=== PATIENT | male | born 1970 | race Caucasian/White ===

== ENCOUNTER 2023-06-03 12:59 | Outpatient (CLI) | payer OTHER, SELFPAY ==
--- OUTSIDE RECORDS SUMMARY | 2023-06-05 15:46 | XMS_ITS | Referral Summary ---
Author Name Unknown Organization [facility] Address [address] [facility] [place] [address] Care Team Providers Care Box Printing Machine Operator Name Role Phone Karl Barros Unavailable [phone] Oliva Cantrell PA-C Unavailable [phone] Karl Barros Primary Care Provider [phone] Allergies No known active allergies Medications Medication [...] on file Medical Devices Implanted Type Area Mining Plant Operator Device Identifier Shelf Expiration Date Model / Serial / Lot Stent Ureteral Contour Soft Percuflex [id number] Implanted:Qty: 1 on 01/11/2020 by Yogesh Anderson MD at [facility] Stent Left: Urethra [employer] 10/04/2022 [id number] / / [id number] Care Teams Box Printing Machine Operator Relationship Specialty Start Date End Date Karl Barros [place] [address] [place] [address] PCP - General Family Practice 12/29/19 Karl Barros [address] [address] Referring Physician Family Practice 12/29/19 Oliva Cantrell PA-C [address] [address] Physician Sprinkler Inspector Physician Sprinkler Inspector - Medical 12/29/19
--- OUTSIDE RECORDS SUMMARY | 2023-06-05 15:46 | XMS_ITS | Data Portability ---
Author Name Unknown Address [address] [place] [address] Phone [phone] Organization [facility], [facility] Address [address] [place] [address] Care Team Providers Care Gift Basket Packer Name Role Phone ELVIN DOBBINS Primary Care [...] 020 [facility], [address], [place], [address], 0 13:03:43 Referral None recorded. Procedures None recorded. Surgeries None recorded. Imaging US, renal 2019 020 [email or web address] [facility] [place], [address], [address], [place], [address], 0 13:04:49 Medication Orders hydrochlor othiazide 50 mg tablet 2019 020 INTERFACE [id number], [address], [place], [address], 0 10:52:03 Patient TargetsNo targets recorded. Patient Instructions Encounter Date Encounter Id Patient Instructions Last Modified By Organization Details Last Modified Time 01/28/2020 [id number] STONE PREVENTION. [email or web address] Not availab le 01/28/2020 10:23:23 12/16/2019 [id number] Ureteroscopy wit h Stone Manipulation - PATIENT [...] observ ation record ed. EVAN [facility] [place] [address] [facility] [address], [place], [address], 06/27/2020 14:41:16 Result Notes None recorded. Problems Name Status Onset Date Resolution Date Notes Provider Name and Address Organization Details Recorded Time Kidney stone Active 0 Yogesh Alford MD [address] [place] [address],[address], [place], [address], [facility] 02/16/2020 09:13:01 Problem Notes None recorded. Procedures Surgical History Date Name Laterality Status Provider Name and Address Organization Details Recorded Time 01/28/20 20 Cystoscopy with foreign body/stent removal completed Dylon Luu MD [address] [place] [address],[address], [place], [address], [facility] 01/28/2020 10:22:20 extracorporeal shockwave lithotripsy completed Dylon Luu MD [address] [place] [address],[address], [place], [address], [facility] 01/28/2020 09:39:39 Imaging Results Imaging Date Name Status LastModified by Organiz ation Details LastModified Time 06/26/2020 US, retroperitone um, complete completed EVAN [facility] [place] [address] [facility] [address], [place], [address], 06/27/2020 14:41:16 Procedure Notes None recorded. Medical [...] Updated DateTime 01/28/2020 180.34 cm 32.5 kg/m2 757076.02 g Dylon Luu MD [address] [facility],[address], [place], [address], [facility] 01/28/2020 09:38:17 Date Recorded Body height Body mass index (BMI) Body weight Provider Name and Address Organization Details Last Updated DateTime 03/27/2020 180.34 cm 32.8 kg/m2 209797.21 g Deangelo dunn [facility] 03/27/2020 10:24:58 Date Recorded Body height Body mass index (BMI) Body weight Provider Name and Address Organization Details Last Updated DateTime 12/16/2019 180.34 cm 32.5 kg/m2 290164.02 g Deangelo dunn [facility] 12/16/2019 16:11:07 Social History Question Answer Notes LastModified by Organizat ion Details LastModified Time Tobacco Smoking Status Never Smoker Deangelo dunn [facility] 12/16/2019 16:14:01 What Is Your Level Of [...] of diabetes mellitus Medical History Condition Response Other N High Blood Pressure N Kidney Stones Y Lung Disease N Depression Y GERD/Acid Reflux N Sexually Transmitted Infection N Diabetes N Bleeding Disorder N Cancer N High Cholesterol N Heart Disease N Past Encounters Encounter ID Performer Location Encounter Start Date Encounter Closed Date Diagnosis/Indication [id number] Yogesh Alford MD [facility] [address] [place] [address] 12/16/2019 16:09:12 12/17/2019 08:44:55 Kidney stone [id number] MD [facility] [address] [place] [address] 01/28/2020 09:34:55 01/28/2020 11:44:45 Ureteric stone [id number] MD MICA [facility] [address] [place] [place] [place] [address] 03/27/2020 10:24:03 03/27/2020 13:16:49 Kidney stone Health Concerns Section Related Observation LastModified by Organization Detai ls LastModified Time None Recorded Concern Status LastModified by Organization Details LastModified Time None Recorded Advance Directives Directive None Recorded Payers Encounter Date Sequence Insurance Name Policy Number Policy Leiva Covered Member ID Leiva Member ID Guarantor Name 03/27/2020 1 [facility] [id number] Vic Ruanovorson [id number] Vic Vann Raj 01/28/2020 1 [facility] [id number] Vic Williamson Raj [id number] Vic Vann Raj 12/16/2019 1 [facility] [id number] Vic Ruanovorson [id number] Vic Vann Raj Notes Date Note Type [...] alleviating factors. This visit was conducted using Book[employer]ee video conferencing technology due to the COVID-19 [...] and coordinate their care. Yogesh Alford MD [address] [place] [address],[facility] [address], [place], [address], [facility] 12/16/2019 17:37:49 01/28/2020 text/html HPI Notes: Mr. [...] STENT REMOVAL..S/P URS,HLL, STENT-DR PRASHANTH Luu MD [address] [place] [address],[address], [place], [address], [facility] 01/28/2020 10:24:06 03/27/2020 text/html HPI Notes: [...] coordinate their care. Yogesh Alford MD [address] [place] [address], [address], [facility] 03/27/2020 10:53:13
--- OUTSIDE RECORDS SUMMARY | 2023-06-05 15:46 | XMS_ITS | Clinical Summary ---
Author Name Unknown Organization [facility] Address [address] [place] [address] Phone [email or web address] Care Team Providers Care Caustic Preparer Name Role Phone Pcp, No Primary Care [...] age to complete this topic Care Teams Caustic Preparer Relationship Specialty Start Date End Date Pcp, [place] [address] PCP - General Family Medicine 06/16/19
--- OUTSIDE RECORDS SUMMARY | 2023-06-05 15:46 | XMS_ITS | Clinical Summary ---
Author Name Unknown Organization [facility] Address [address] [facility] [place] [address] Care Team Providers Care Senior Accounting Manager Name Role Phone Karl Barros Unavailable [phone] Oliva Cantrell PA-C Unavailable [phone] Karl Barros Primary Care Provider [phone] Allergies No known active allergies Medications Medication [...] this topic Medical Devices Implanted Type Area Benzene Worker Device Identifier Shelf Expiration Date Model / Serial / Lot Stent Ureteral Contour Soft Percuflex [id number] Implanted:Qty: 1 on 01/11/2020 by Yogesh Anderson MD at [facility] Stent Left: Urethra [employer] 10/04/2022 [id number] / / [id number] Care Teams Senior Accounting Manager Relationship Specialty Start Date End Date Karl Barros [address] [address] PCP - General Family Practice 12/29/19 Karl Barros [address] [address] Referring Physician Family Practice 12/29/19 Oliva Cantrell PA-C [address] [place] [address] [place] [address] Physician Adult Psychiatrist Physician Adult Psychiatrist - Medical 12/29/19
--- OUTSIDE RECORDS SUMMARY | 2023-06-05 15:47 | XMS_ITS | Encounter Summary ---
Author Name Unknown Organization [facility] Address [address] [place] [address] Phone [email or web address] Care Team Providers Care Planning Assistant Name Role Phone Pcp, No Primary Care Provider Unavailabl e Reason for Visit * Reason Comments Annual Physical Exam Encounter Details Date Type Department Care Team (Late st Contact Info) Description 01/10/2023 8:30 AM CDT Office Visit [facility] [address] [place] [address] Nissa Morton NP [address] [place] [address] Encounter for annual physical exam (Primary Dx); [...] coaches. This is a free service for [facility] employees. Please call our front end application developer to [phone]. If you reconsider, recommended vaccines: shingles, flu, tetanus booster, covid booster coming out this fall. * Attachments The following attachments cannot be sent through Care Everywhere. * Well Visit: 50 to 65 Year Men (Italian) * Anxiety: Paying Attention to How You're Doing: Video (Italian) * Exercise: General Info (Italian) * Kidney Stone Prevention Diet: General Info (Italian) documented in this encounter Progress Notes * Nissa Morton, ARNULFO - 01/10/2023 8:30 AM CDT Subjective: Vic Anthony is a 52 y.o. male last seen by me 07/2020 here for annual exam. No international travel planned. 2020-lithotripsy and stent-mult stones. Has been on HCTZ 50 mg once daily since then. No recent symptoms. 2021-screening colonoscopy-had it done in [place]. Had a few polyps. Repeat due in [...] ear normal. Nose: Nose normal. Mouth/Throat: Lips: [place]. No lesions. Mouth: Mucous membranes are moist. [...] 75 mg once daily. Refills sent to [facility]. Advised to schedule PE w/ fasting labs. Orders: - Vitamin D 25-Hydroxy Total (62611) - Vitamin B12 Cyanocobalamin (97245) - CBC Complete Blood Count with Differential and Platelet (10129) - Comprehensive metabolic panel (37338) - sertraline (ZOLOFT) 50 MG tablet; Take [...] Screening for lipid disorders - Lipid panel (24452) Screening for human immunodeficiency virus without presence of risk factors - HIV 1/2 Antigen and Antibodies, 4th Generation, with Reflexes (18721) Encounter for HCV screening test for low risk patient - Hepatitis panel, general - [facility] (60486,54703,72851,49909,33225) Screening PSA (prostate specific antigen) - PSA Prostate Specific Antigen Total (46086) Screening for diabetes mellitus - Hgb A1C Hemoglobin Glycosylated (92072) BMI 35.0-35.9,adult Comments: 60 min mod physical activity daily, recommend Health Coaching/condition mgmt Repeat colonoscopy 2026 Declines Td, flu, shingles today. Refills sent. Nissa Morton NP documented in this encounter Plan of Treatment Not on file documented as of this encounter Procedures Procedure Name Priority Date/Time Associated Diagnosis Comments HEPATITIS PANEL, GENERAL - [facility] Routine 01/10/2023 8:43 AM CDT Encounter for [...] encounter Results * (ABNORMAL) Comprehensive metabolic panel (97924) (01/10/2023 8:43 AM CDT) Pathologist [facility] Glucose 86 65 - 99 mg/dL [facility] Comment: ? Fasting reference interval [...] 10 - 35 U/L [facility] ALT (SGPT) 16 9 - 46 U/L [facility] Blood (Blood, Venous) 01/10/2023 8:43 AM CDT 01/11/2023 5:37 AM CDT Nissa [facility] FAT PURIFICATION WORKER LAB BLOOD ORDERABLES [facility] [address] [place] [address] * CBC Complete Blood Count with Differential and Platelet (31463) (01/10/2023 8:43 AM CDT) Auto WBC 6.3 3.8 - 10.8 Thousand/u L [facility] RBC 4.77 4.20 - 5.80 Million/uL [facility] Hemoglobin 14.9 13.2 - [...] Platelets 258 140 - 400 Thousand/u L [facility] MPV 9.2 7.5 - [...] AM CDT 01/11/2023 5:37 AM CDT Nissa [facility] FAT PURIFICATION WORKER LAB BLOOD ORDERABLES [facility] [address] [place] [address] * Hepatitis panel, general - [facility] (66136,04573,67007,10011,27839) (01/10/2023 8:43 AM CDT) Hepatitis A Antibody, Total NON-REACTI VE NON-REACT TARAN [facility] Comment: For additional information, please refer to http://[facility]/faq/HJU277 (This link is being provided for informational/ educational purposes only.) HEPATITIS B SURFACE ANTIBODY QL NON-REACTI VE NON-REACT TARAN [facility] HEPATITIS B SURFACE ANTIGEN NON-REACTI VE NON-REACT TARAN [facility] Comment: For additional information, please refer to http://[facility]/faq/AOU305 (This link is being provided for informational/ educational purposes only.) Hepatitis B Core Ab Total NON-REACTI VE NON-REACT TARAN [facility] Comment: For additional information, please refer to http://[facility]/faq/BIQ783 (This link is being provided for informational/ educational purposes only.) HEPATITIS C ANTIBODY NON-REACTI VE NON-REACT TARAN [facility] Comment: HCV antibody was non-reactive. There is no laboratory evidence of HCV infection. In most cases, no further action is required. However, if recent HCV exposure is suspected, a test for HCV RNA (test code 01687) is suggested. For additional information please refer to http://[facility]/faq/QWB87w2 (This link is being provided for informational/ educational purposes only.) Blood (Blood, Venous) 01/10/2023 8:43 AM CDT 01/11/2023 5:37 AM CDT [facility] LAB BLOOD ORDERABLES Performing Organization Address [facility]/ZIP Co de Phone Number [facility] [address] [place] [address] * Hgb A1C Hemoglobin Glycosylated (25855) (01/10/2023 8:43 AM CDT) Hemoglobin A1C 5.0 <5.7 % of total Hgb [facility] Comment: For the purpose [...] diagnosis of diabetes in children. According to [place] Diabetes Association (ADA) guidelines, hemoglobin A1c <7.0% represents optimal control in non- diabetic patients. Different metrics may apply to specific patient populations. Standards of Medical Care in Diabetes(ADA). Blood (Blood, Venous) 01/10/2023 8:43 AM CDT 01/11/2023 5:37 AM CDT [facility] LAB BLOOD ORDERABLES Performing Organization Address [facility]/ZIP Co de Phone Number [facility] [address] [place] [address] * HIV 1/2 Antigen and Antibodies, 4th Generation, with Reflexes (96354) (01/10/2023 8:43 AM CDT) HIV Combo AB/AG NON-REACT TARAN NON-REACT TARAN [facility] Comment: HIV-1 antigen and HIV-1/HIV-2 [...] ?? For additional information please refer to http://education.j-Grab/faq/DMP029 (This link is being provided for informational/ educational purposes only.) The performance of this assay has not been clinically validated in patients less than 2 years old. Blood (Blood, Venous) 01/10/2023 8:43 AM CDT 01/11/2023 5:37 AM CDT [facility] LAB BLOOD ORDERABLES Performing Organization Address [facility] de Phone Number [facility] [address] [place] [address] * PSA Prostate Specific Antigen Total (12633) (01/10/2023 8:43 AM CDT) PSA 0.49 < OR = 4.00 ng/mL [facility] Comment: The total PSA value from [...] 8:43 AM CDT 01/11/2023 5:37 AM CDT [facility] LAB BLOOD ORDERABLES Performing Organization Address [facility] Co de Phone Number [facility] [address] [place] [address] * Vitamin B12 Cyanocobalamin (20027) (01/10/2023 8:43 AM CDT) Pathologist [facility] Vitamin B-12 265 200 - 1,100 pg/mL [facility] Comment: Please Note: Although the reference [...] CDT 01/11/2023 5:37 AM CDT Nissa Morton FAT PURIFICATION WORKER LAB BLOOD ORDERABLES Performing Organization Address City/State/[facility] Co de Phone Number [facility] [address] [place] [address] * Vitamin D 25-Hydroxy Total (22527) (01/10/2023 8:43 AM CDT) [facility] Vit D, 25-Hydroxy 61 30 - 100 ng/mL [facility] Comment: Vitamin D Status ? 25-OH Vitamin D: Deficiency: ?<20 ng/mL Insufficiency: ? 20 - 29 ng/mL Optimal: ? > or = 30 ng/mL For 25-OH Vitamin D testing on patients on D2-supplementation and patients for whom quantitation of D2 and D3 fractions is required, the [facility]() 25-OH VIT D, (D2,D3), LC/MS/MS is recommended: order code 21102 (patients >2yrs). See Note 1 Note 1 For additional information, please refer to http://education.Rotten Tomatoes/faq/WIY311 (This link is being provided for informational/ educational purposes only.) Blood (Blood, Venous) 01/10/2023 8:43 AM CDT 01/11/2023 5:37 AM CDT Nissa Morton NP LAB BLOOD ORDERABLES [facility] [address] [place] [address] * (ABNORMAL) Lipid panel (42877) (01/10/2023 8:43 AM CDT) Cholesterol 222(H) <200 mg/dL [facility] Total HDL-C Direct 45 > OR = 40 mg/dL [facility] Triglycerides 209(H) <150 mg/dL [facility] Comment: If a non-fasting specimen was collected, consider repeat triglyceride testing on a fasting specimen if clinically indicated. [place] et al. J. of Clin. Lipidol. 2015;9:129-169. LDL Calculated 142(H) mg/dL (calc) [facility] Comment: Reference range: <100 Desirable range <100 mg/dL for primary prevention; ?? <70 mg/dL for patients with CHD or diabetic patients with > or = 2 CHD risk factors. LDL-C is now calculated using the Mik-Peter calculation, which is a validated novel method providing better accuracy than the Friedewald equation in the estimation of LDL-C. Mik SS et al. SITA. 2013;310(19): 7732-6477 (http://education.Exit41.[place]/faq/BVH532) Chol/HDL Ratio 4.9 <5.0 (calc) [facility] Non HDL Chol. (LDL+VLDL) 177(H) <130 mg/dL (calc) [facility] Comment: For patients with diabetes plus 1 major ASCVD risk factor, treating to a non-HDL-C goal of <100 mg/dL (LDL-C of <70 mg/dL) is considered a therapeutic option. Blood (Blood, Venous) 01/10/2023 8:43 AM CDT 01/11/2023 5:37 AM CDT Nissa Morton FAT PURIFICATION WORKER LAB BLOOD ORDERABLES [facility] [address] [place] [address] documented in this encounter Visit Diagnoses Diagnosis [...] 35.0-35.9,adult documented in this encounter Care Teams Planning Assistant Relationship Specialty Start Date End Date [place], [place] [address] PCP - General Family Medicine 06/16/19 documented as of this encounter
== END 2023-06-03 13:00 | disposition home or self-care (01) ==
LOC: NFLDREF 06-05 15:43
PROVIDERS: Visit Provider Family Medicine
DX: R31.0 Gross hematuria (principal)
CPT/HCPCS: 87086

== ENCOUNTER 2023-06-04 09:11 | Outpatient (CLI) | payer OTHER, SELFPAY ==
--- OUTSIDE RECORDS SUMMARY | 2023-06-04 09:23 | XMS_ITS | Clinical Summary ---
Author Name Unknown Organization [facility] Address [address] [place] [id number] Phone [email or web address] Care Team Providers Care Compensation Director Name Role Phone Pcp, No Primary Care Provider Unavailabl e Allergies No known active allergies Medications Medication Sig Dispensed Refills Start Date End Date Status sertraline (ZOLOFT) 50 MG tabletIndications:Mi xed anxiety and depressive disorder Take 1.5 tablets (75 mg total) by mouth 1 (one) time each day. TAKE ONE AND ONE-HALF TABLETS ONE TIME EACH DAY 135 tablet 3 01/10/2023 Active hydroCHLOROthiazide (HYDRODIURIL) 50 MG tabletIndications:Ne phrolithiasis Take 1 tablet (50 mg total) by mouth 1 (one) time each day. 90 tablet 1 01/10/2023 Active Active Problems Problem Noted Date Diagnosed Date Medication refill 06/16/2019 Anxiety and depression 07/21/2017 Overview: Immunizations Name Administration Dates Next Due Influenza Tri (CVX - 141) 02/12/2012,,02/20/2010, 009 Td (TdVax), adult, 2 Lf teta nus toxoid, PF, adsorbed (CVX-09) 09/28/2002 Family History Medical History Relation Name Comments Cancer Father Wiliam leukemia- w /in 1 yr of diagnosis Valvular heart disease Father Wiliam valve replacement Coronary artery disease Father's Brother Diabetes Maternal Grandfather Grandpa Cancer Mother Mother met ovarian- d 4 days after diagnosis Depression Mother Mother Relation Name Status Comments Father Wiliam Father's Brother Maternal Grandfather Grandpa Mother Mother Social History Tobacco Use Types Packs/Day Years Used Date Smoking Tobacco: Never Smokeless Tobacco: Never Tobacco Cessation:Counseling Given: Not Answered Alcohol Use Standard Drinks/Week Comments Not Currently 5 (1 standard drink = 0.6 oz pur e alcohol) Intimate Partner Violence Answer Date R ecorded Insults You Not on file 08/22/2020 Threatens You Not on file 08/22/2020 Screams at You Not on file 08/22/2020 Physically Hurt Not on file 08/22/2020 Intimate Partner Violence Score Not on file 08/22/2020 Alcohol Use Answer Date Recorded Alcohol Use Status Not Currently 01/10/2023 Depression Answer Date Recorded PHQ Total Score 4 01/10/2023 Stress Answer Date Recorded Stress in your Life 0 06/22/2020 Dealing with Stress Not on file 06/22/2020 Sex and Gender Information Value Date Recorded Sex Assigned at Not on file Gender Identity Not on file Sexual Orientation Not on file Last Filed Vital Signs Vital Sign Reading Time Taken Comments Blood Pressure 112/70 01/10/2023 8:32 AM CDT Pulse 72 01/10/2023 8:32 AM CDT Temperature 36.1 ??C (97 ??F) 01/10/2023 8:32 AM CDT Respiratory Rate 12 01/10/2023 8:32 AM CDT Oxygen Saturation 98% 01/10/2023 8:32 AM CDT Inhaled Oxygen Concentration - - Weight 115 kg (253 lb 4.8 oz) 01/10/2023 8:32 AM CDT Height 180.3 cm (5' 11) 01/10/2023 8:32 AM CDT Body Mass Index 35.33 01/10/2023 8:32 AM CDT Plan of Treatment Health Maintenance Due Date Last Done Comments Dental Cleaning/Exam 1970 Influenza Immunization (#1) 2023 10/0 07/2011, 02/07/2011, 02/20/2010, Additional history exists Annual Preventive Exam 01/11/2024 01/10/2023, 2022 Covid-19 Immunization (#1) 01/11/2024 P ostponed from 01/26/1971 (Member Refused) Hepatitis B Immunization (1 of 3 - 3-dose series) 01/11/2024 Postponed from 1970 (Member Refused) Tetanus (Tdap or Td) Immunization 01/11/2024 09/28/2002 Postponed from 09/28/2012 (Member Refused) Zoster Immunization (1 of 2) 01/11/2024 Postponed from 2020 (Member Refused) Colorectal Cancer Screening 01/09/2027 01/09/2022 HIV Screening Completed 01/10/2023 Hep B Infection Screening - Surface Antigen Completed 01/10/2023 Hepatitis C Screening Completed 01/10/2023 HIB Immunization Aged Out No longer e ligible based on patient's age to complete this topic HPV Immunization Aged Out No longer e ligible based on patient's age to complete this topic Hepatitis A Immunization Aged Out No longer eligible based on patient's age to complete this topic Pneumococcal: Ped (0 to 5 Yrs) and At-Risk Member (6 to 64 Yrs) Aged Out No longer eligible based on patient's age to complete this topic Polio Immunization Aged Out No longer eligible based on patient's age to complete this topic Care Teams Compensation Director Relationship Specialty Start Date End Date Pcp, [place] [address] PCP - General Family Medicine 06/16/19
--- OUTSIDE RECORDS SUMMARY | 2023-06-04 09:23 | XMS_ITS | Clinical Summary ---
Author Name Unknown Organization [facility] Address [address] [facility] [place] [address] Care Team Providers Care Carbon Coater Machine Operator Name Role Phone Karl Barros Unavailable [phone] Oliva Cantrell PA-C Unavailable [phone] Karl Barros Primary Care Provider [phone] Allergies No known active allergies Medications Medication Sig Dispensed Refills Start Date End Date Status ondansetron (ZOFRAN) 4 MG tablet Take 4 mg by mouth every 6 hours as needed for nausea 0 Active oxyCODONE-acetaminop hen (PERCOCET) 5-325 MG tablet Take 1-2 tablets by mouth every 6 hours as needed for severe pain 0 Active sildenafil (REVATIO) 20 MG tablet Take 20 mg by mouth daily 0 Active tamsulosin (FLOMAX) 0.4 MG capsule Take 0.4 mg by mouth daily 0 Active sertraline (ZOLOFT) 50 MG tablet Take 50 mg by mouth daily 0 Active HYDROcodone-acetamin ophen (NORCO) 5-325 MG tabletIndications:Ki dney stone Take 1-2 tablets by mouth every 4 hours as needed for moderate to severe pain 15 tablet 0 01/11/2020 Active Social History Tobacco Use Types Packs/Day Years Used Date Smoking Tobacco: Never Smokeless Tobacco: Never Alcohol Use Standard Drinks/Week Comments Yes 0 (1 standard drink = 0.6 oz pur e alcohol) occassional Adolescent Education Answer Date Record ed Getting School Help Needed Not on file 01/31 Sex and Gender Information Value Date Recorded Sex Assigned at Not on file Gender Identity Not on file Sexual Orientation Not on file Last Filed Vital Signs Vital Sign Reading Time Taken Comments Blood Pressure 126/83 01/11/2020 5:15 PM CDT Pulse 72 01/11/2020 3:30 PM CDT Temperature 36.4 ??C (97.6 ??F) 01/11/2020 2:27 PM CD T Respiratory Rate 18 01/11/2020 5:15 PM CDT Oxygen Saturation 100% 01/11/2020 4:40 PM CDT Inhaled Oxygen Concentration - - Weight 108 kg (238 lb) 01/11/2020 9:41 AM CDT Height 180.3 cm (5' 11) 01/11/2020 9:41 AM CDT Body Mass Index 33.19 01/11/2020 9:41 AM CDT Plan of Treatment Health Maintenance Due Date Last Done Comments ADVANCE CARE PLANNING 1970 ANNUAL REVIEW OF HM ORDERS 1970 CT COLONOGRAPHY 1970 FIT 1970 FLEX SIG 1970 HEPATITIS B IMMUNIZATION (1 of 3 - 3-dose series) 1970 YEARLY PREVENTIVE VISIT 1970 sDNA (Cologuard) 1970 COVID-19 Vaccine (#1) 01/26/1971 COLONOSCOPY 1980 COLORECTAL CANCER SCREENING 1980 HIV SCREENING 1985 HEPATITIS C SCREENING 1988 DTAP/TDAP/TD IMMUNIZATION (1 - Tdap) 09/29/2002 09/28/2002 LIPID 2005 ZOSTER IMMUNIZATION (1 of 2) 2020 INFLUENZA VACCINE (#1) 2023 2, 02/07/2011, 02/20/2010, Additional history exists PHQ-2 (once per calendar year) 2023 HPV IMMUNIZATION Aged Out No longer e ligible based on patient's age to complete this topic IPV IMMUNIZATION Aged Out No longer e ligible based on patient's age to complete this topic MENINGITIS IMMUNIZATION Aged Out No l onger eligible based on patient's age to complete this topic Pneumococcal Vaccine: Pediatrics (0 to 5 Years) and At-Risk Patients (6 to 64 Years) Aged Out No longer eligible based on patient's age to complete this topic RSV MONOCLONAL ANTIBODY Aged Out No l onger eligible based on patient's age to complete this topic Medical Devices Implanted Type Area Network Security Analyst Device Identifier Shelf Expiration Date Model / Serial / Lot Stent Ureteral Contour Soft Percuflex [id number] Implanted:Qty: 1 on 01/11/2020 by Yogesh Anderson MD at [facility] Stent Left: Urethra [employer] 10/04/2022 [id number] / / [id number] Care Teams Carbon Coater Machine Operator Relationship Specialty Start Date End Date Karl Barros [address] [address] PCP - General Family Practice 12/29/19 Karl Barros [address] [address] Referring Physician Family Practice 12/29/19 Oliva Cantrell PA-C [id number] [place] [address] [place] [address] Physician Cheese Weigher Physician Cheese Weigher - Medical 12/29/19
--- OUTSIDE RECORDS SUMMARY | 2023-06-04 09:23 | XMS_ITS | Referral Summary ---
Author Name Unknown Organization [facility] Address [address] [facility] [place] [address] Care Team Providers Care Pilling Machine Operator Name Role Phone Karl Barros Unavailable [phone] Oliva Cantrell PA-C Unavailable [phone] Karl Barros Primary Care Provider [phone] Allergies No known active allergies Medications Medication [...] 01/11/2020 9:41 AM CDT Plan of Treatment Not on file Medical Devices Implanted Type Area Account Support Associate Device Identifier Shelf Expiration Date Model / Serial / Lot Stent Ureteral Contour Soft Percuflex [id number] Implanted:Qty: 1 on 01/11/2020 by Yogesh Anderson MD at [facility] Stent Left: Urethra [employer] 10/04/2022 [id number] / / [id number] Care Teams Pilling Machine Operator Relationship Specialty Start Date End Date Karl Barros [place] [address] [place] [address] PCP - General Family Practice 12/29/19 Karl Barros [address] [address] Referring Physician Family Practice 12/29/19 Oliva Cantrell PA-C [phone] [address] Physician Tetryl Screen Operator Physician Tetryl Screen Operator - Medical 12/29/19
--- OUTSIDE RECORDS SUMMARY | 2023-06-04 09:23 | XMS_ITS | Data Portability ---
Author Name Unknown Address [address] [place] [address] Phone [phone] Organization [facility], [facility] Address [address] [place] [address] Care Team Providers Care Campus Safety Officer Name Role Phone ELVIN DOBBINS Primary Care Provider Assessment Encounter Date Assessment Date Assessment LastModified by Organization Details LastModified Time 12/16/2019 12/16/2019 49-year-old male with nephrolithiasis Not available 12/16/2019 17:35:23 01/28/2020 01/28/2020 49 Y/O MALE, HX FOR LEFT FLANK PAIN, S/P URS,HLL, LEFT STENT WITH DR ALFORD. DOING WELL. STENT REMOVED. PREVENTIVE MEASURES REVIEWED. PLAN FOLLOWUP WITH DR ALFORD IN 6-12 MO. francisco CALVO Not available 01/28/2020 10:23:45 03/27/2020 03/27/2020 49-year-old male with nephrolithiasis. Of note a total of 15 minutes was spent reviewing records and in discussion with patient, >50 % of which was in coordination and counseling. Not available 03/27/2020 10:53:01 Plan of Treatment Reminders Order Date Submit Date Provider Last Modified By Organization Details Last Modified Time Details Appointments None recorded. Lab kidney stone, 24-hour urine panel 2019 020 [facility], [address], [place], [address], 0 13:03:43 Referral None recorded. Procedures None recorded. Surgeries None recorded. Imaging US, renal 2019 020 [email or web address] [facility] [place], [address], [address], [place], [address], 0 13:04:49 Medication Orders hydrochlor othiazide 50 mg tablet 2019 020 INTERFACE [id number], [address], [place], [address], 0 10:52:03 Patient TargetsNo targets recorded. Patient Instructions Encounter Date Encounter Id Patient Instructions Last Modified By Organization Details Last Modified Time 01/28/2020 [id number] STONE PREVENTION. [email or web address] Not availab le 01/28/2020 10:23:23 12/16/2019 [id number] Ureteroscopy wit h Stone Manipulation - PATIENT INFORMED CONSENT Ureteroscopy is a procedure in which a thin telescope is inserted into the ureter (tube that drains the kidney) to remove a stone or obstruction. The goal of this treatment is to remove or break urinary stones into particles small enough to be removed from the urinary tract. This may be accomplished with a laser and/or stone basketing. I understand that there are alternative methods to treat urinary stones, which include: No treatment of the urinary stone(s). Manipulation of a stone in the ureter back into the kidney with placement of a stent (a tube that drains the kidney ? which may be followed by another treatment Shock Wave Lithotripsy (ESWL), or treatment of stones with energy waves Percutaneous Lithotripsy (PNL), a puncture/scope technique through the side directly into the kidney (generally reserved for larger stones) Surgical removal of stone(s) through an incision. I realize that ureteroscopy with stone manipulation MAY or MAY NOT successfully fragment my stones. In many cases, a temporary ureteral stent will be necessary to allow for the passage of stones. I further recognize that some fragments may require alternative treatments to be used following ureteroscopy. I understand that radiographs (x-rays) and other diagnostic studies are necessary following treatment to assess the success of treatment and to diagnose urinary drainage problems, which might result from treatment. I understand that any tubes placed in my urinary tract before, during and after ureteroscopy treatment will need to be removed in a timely fashion. RISKS OF Ureteroscopy with Stone Manipulation The stone may be incompletely fragmented and require alternative treatment. There may be damage to the ureter required prolonged stenting or open repair There may be bleeding sufficient enough to require transfusion. Urinary infection associated with stones may become aggravated and become life threatening. Malfunction of the laser or equipment is a possibility and may require re-scheduling Damage to kidney can occur and may require the removal of the kidney. Damage to the ureter, or tube that drains the kidney may occur and may result in scarring or stricture Anesthesia risks including heart attack, stroke, and even . THESE ARE NOT PROBABLE RESULTS, BUT THEY ARE STATISTICAL POSSIBILITIES. PATIENT ACKNOWLEDGEMENT I have been given an opinion as to the appropriateness of ureteroscopy with stone manipulation for my condition by my personal physician. I have the right to seek a second opinion regarding my care. I understand that it is my responsibility to seek follow-up care from my urologist after treatment. I will be given instructions on necessary post-treatment care. If a ureteral stent has been placed it will need to be removed at a later date (second stage procedure) in the office. I have been allowed to ask questions about the treatment. I have read this form and/or it has been explained to me. I understand that by signing this form, I am consenting to the performance of ureteroscopy with stone manipulation for treatment of stones and any of the above-mentioned alternative procedures necessary for my best health. By signing this document, I agree that any problems, risks, or complications, which may arise either in whole or in part as a result of inaccurate or incomplete information shall be my responsibility. Not available 12/16/2019 17:37:29 Reason for Referral None Reported. Results Created Date Observation Date Name Description Value Unit Range Abnormal Flag LastModifiedBy Organization Detail LastModifiedTime 06/26/19 21 06/26/2020 US, retro perit oneum , compl ete No observ ation record ed. EVAN [facility] [place] [address] [facility] [address], [place], [address], 06/27/2020 14:41:16 Result Notes None recorded. Problems Name Status Onset Date Resolution Date Notes Provider Name and Address Organization Details Recorded Time Kidney stone Active 0 Yogesh Alford MD [address] [place] [address],[address], [place], [address], [facility] 02/16/2020 09:13:01 Problem Notes None recorded. Procedures Surgical History Date Name Laterality Status Provider Name and Address Organization Details Recorded Time 01/28/20 20 Cystoscopy with foreign body/stent removal completed Dylon Luu MD [address] [place] [address],[address], [place], [address], [facility] 01/28/2020 10:22:20 extracorporeal shockwave lithotripsy completed Dylon Luu MD [address] [place] [address],[address], [place], [address], [facility] 01/28/2020 09:39:39 Imaging Results Imaging Date Name Status LastModified by Organiz ation Details LastModified Time 06/26/2020 US, retroperitone um, complete completed EVAN [facility] [place] [address] [facility] [address], [place], [address], 06/27/2020 14:41:16 Procedure Notes None recorded. Medical Equipment None Reported. Allergies No known drug allergies Medications Name Sig Start Date Stop Date Status Note LastModified by Organization Details LastModified Time hydrochloroth iazide 50 mg tablet TAKE 1 TABLET BY MOUTH EVERY DAY active Not Available Not Available No t Available hydrocodone 5 mg-acetaminop hen 325 mg tablet 03/27 completed Not Available Not Available Not Available oxycodone-ulysses taminophen 5 mg-325 mg tablet 03/27 completed Not Available Not Available Not Available tamsulosin 0.4 mg capsule 03/27 completed Not Available Not Available Not Available ondansetron 4 mg disintegratin g tablet 03/27 completed Not Available Not Available Not Available sertraline 50 mg tablet active Not Available Not Available No t Available Zoloft 01/27 completed Not Available Not Available Not Available Vitals Date Recorded Body height Body mass index (BMI) Body weight Provider Name and Address Organization Details Last Updated DateTime 01/28/2020 180.34 cm 32.5 kg/m2 416300.02 g Dylon Luu MD [address],[address], [place], [address], [facility] 01/28/2020 09:38:17 Date Recorded Body height Body mass index (BMI) Body weight Provider Name and Address Organization Details Last Updated DateTime 03/27/2020 180.34 cm 32.8 kg/m2 932573.21 g Deangelo dunn [facility] 03/27/2020 10:24:58 Date Recorded Body height Body mass index (BMI) Body weight Provider Name and Address Organization Details Last Updated DateTime 12/16/2019 180.34 cm 32.5 kg/m2 719207.02 g Deangelo dunn [facility] 12/16/2019 16:11:07 Social History Question Answer Notes LastModified by Organizat ion Details LastModified Time Tobacco Smoking Status Never Smoker Deangelo dunn [facility] 12/16/2019 16:14:01 What Is Your Level Of Alcohol Consumption? Moderate Information not available 03/27/2020 What Is Your Level Of Caffeine Consumption? Moderate Information not available 03/27/2020 How Much Tobacco Do You Chew? None Information not available 03/27/2020 Do You Or Have You Ever Used E-cigarettes Or Vape? Never Used Electronic Cigarettes Information not available 03/27/2020 Recreational Drug Use No Information not available 03/27/2020 Marital Status Informatio n not available 03/27/2020 Sex: Male Functional Status None recorded. Mental Status None recorded. Family History Relationship Description Onset Age of this Age Resolved Age Notes Mother Family history of cancer Father Family history of cardiac disorder Maternal Grandfather Family history of diabetes mellitus Medical History Condition Response Diabetes N Sexually Transmitted Infection N Bleeding Disorder N Other N High Blood Pressure N Kidney Stones Y High Cholesterol N GERD/Acid Reflux N Heart Disease N Cancer N Depression Y Lung Disease N Past Encounters Encounter ID Performer Location Encounter Start Date Encounter Closed Date Diagnosis/Indication [id number] Yogesh Alford MD [facility] [address] [place] [address] 12/16/2019 16:09:12 12/17/2019 08:44:55 Kidney stone [id number] MD [facility] [address] [place] [address] 01/28/2020 09:34:55 01/28/2020 11:44:45 Ureteric stone [id number] MD [facility] [address] [place] [facility] [address] 03/27/2020 10:24:03 03/27/2020 13:16:49 Kidney stone Health Concerns Section Related Observation LastModified by Organization Detai ls LastModified Time None Recorded Concern Status LastModified by Organization Details LastModified Time None Recorded Advance Directives Directive None Recorded Payers Encounter Date Sequence Insurance Name Policy Number Policy Leiva Covered Member ID Leiva Member ID Guarantor Name 03/27/2020 1 [facility] [id number] Vic Ruanovorson [id number] Vic Vann Raj 01/28/2020 1 [facility] [id number] Vic Williamson Raj [id number] Vic Vann Raj 12/16/2019 1 [facility] [id number] Vic Ruanovorson [id number] Vic Vann Raj Notes Date Note Type Note Provider Name and Address Organization Details Recorded Time 12/16/2019 text/html HPI Notes: Mr. Morse is a very pleasant 49-year-old gentleman who previously developed gross hematuria back in May and so therefore was seen by his primary care physician who obtained a CT abdomen pelvis. CT abdomen pelvis revealed multiple nephrolithiasis including one large stone in the left renal unit. At that time the patient was not having any pain or other symptoms and therefore elected for conservative management. In November however he developed new onset left-sided flank pain which subsequently resolved as well as increased hematuria. He underwent a repeat CT abdomen pelvis which again confirmed 1.4 cm left renal calculus but now with moderate left hydronephrosis. He therefore is referred to me today to discuss potential stone intervention. This represents his first and only stone episode. He is not aware of any family members having any issues with stones. And no point has he developed any fevers, chills, nausea, emesis, or changes in bowel habits. He was provided some pain medication by his primary care physician which is taking care of any discomfort he has felt. Current he reports that he feels overall well. He has not otherwise identified any exacerbating or alleviating factors. This visit was conducted using [employer] video conferencing technology due to the COVID-19 crisis. Prior to conducting our video e-health visit, the patient was apprised of the risks, benefits and alternatives to video visits including but not limited to inadequate image resolution, interrupted video visits due to technological limitations, delays in medical evaluation and treatment due to deficiencies or failures of equipment, failure of security protocols resulting in a breach of privacy of personal medical information and a lack of access to complete medical records resulting in not fully informed decisions. Also, because of the COVID-19 pandemic, it was not possible for the patient to sign the privacy regulations, HIPAA release and assignment of benefits forms. The patient was given the opportunity to ask questions about these policies and gave verbal acknowledgement and approval of these policies as well as to hold this meeting using video technology. Lastly, the patient agreed to allowing their medication history to be pulled from a national pharmacy database to facilitate and coordinate their care. Yogesh Alford MD [address] [place] [address],[facility] [address], [place], [address], [facility] 12/16/2019 17:37:49 01/28/2020 text/html HPI Notes: Mr. Morse is a very pleasant 49-year-old gentleman who previously developed gross hematuria back in May and so therefore was seen by his primary care physician who obtained a CT abdomen pelvis. CT abdomen pelvis revealed multiple nephrolithiasis including one large stone in the left renal unit. At that time the patient was not having any pain or other symptoms and therefore elected for conservative management. In November however he developed new onset left-sided flank pain which subsequently resolved as well as increased hematuria. He underwent a repeat CT abdomen pelvis which again confirmed 1.4 cm left renal calculus but now with moderate left hydronephrosis. He therefore is referred to me today to discuss potential stone intervention. This represents his first and only stone episode. He is not aware of any family members having any issues with stones. And no point has he developed any fevers, chills, nausea, emesis, or changes in bowel habits. He was provided some pain medication by his primary care physician which is taking care of any discomfort he has felt. Current he reports that he feels overall well. He has not otherwise identified any exacerbating or alleviating factors. HERE FOR STENT REMOVAL..S/P URS,HLL, STENT-DR PRASHANTH Luu MD [address] [place] [address],[address], [place], [address], [facility] 01/28/2020 10:24:06 03/27/2020 text/html HPI Notes: Mr. Morse is a very pleasant 49-year-old gentleman who previously developed gross hematuria back in May and so therefore was seen by his primary care physician who obtained a CT abdomen pelvis. CT abdomen pelvis revealed multiple nephrolithiasis including one large stone in the left renal unit. At that time the patient was not having any pain or other symptoms and therefore elected for conservative management. In November however he developed new onset left-sided flank pain which subsequently resolved as well as increased hematuria. He underwent a repeat CT abdomen pelvis which again confirmed 1.4 cm left renal calculus but now with moderate left hydronephrosis. He therefore is referred to me today to discuss potential stone intervention. This represents his first and only stone episode. He is not aware of any family members having any issues with stones. And no point has he developed any fevers, chills, nausea, emesis, or changes in bowel habits. He was provided some pain medication by his primary care physician which is taking care of any discomfort he has felt. Current he reports that he feels overall well. He has not otherwise identified any exacerbating or alleviating factors. 03/27/20: Here for follow up Nephrolithiasis. Underwent cystoscopy with URS and HLL 01/11/2020 for obstructing ureteral calculus. At current he reports that he is still passing small amount of sand particles and occasionally will have a larger fragment between 1 and 2 mm but minimal if any pain associated with this. We did discuss his diet significantly he was previously on a keto diet but has returned to a more balanced diet at this point. He completed a 24 hour urine evaluation which revealed extreme hypercalciuria and hyperuricosuria. We reviewed all the aspects of his 24-hour urine analysis. This visit was conducted by telephone due to the COVID-19 crisis. Prior to conducting our telephone visit, the patient was apprised of the risks, benefits and alternatives to telephone visits including but not limited to poor audio quality, interrupted visits due to technological limitations, delays in medical evaluation and treatment due to deficiencies or failures of equipment, failure of security protocols resulting in a breach of privacy of personal medical information and a lack of access to complete medical records resulting in not fully informed decisions. Also, because of the COVID-19 pandemic, it was not possible for the patient to sign the privacy regulations, HIPAA release and assignment of benefits forms. The patient was given the opportunity to ask questions about these policies and gave verbal acknowledgement and approval of these policies as well as to hold this meeting by telephone. Lastly, the patient agreed to allowing their medication history to be pulled from a national pharmacy database to facilitate and coordinate their care. Yogesh Alford MD [address] [place] [address], [address], [facility] 03/27/2020 10:53:13
--- OUTSIDE RECORDS SUMMARY | 2023-06-04 09:23 | XMS_ITS | Encounter Summary ---
Author Name Unknown Organization [facility] Address [address] [place] [phone] Phone [email or web address] Care Team Providers Care Relay Tester Name Role Phone Pcp, No Primary Care Provider Unavailabl e Reason for Visit * Reason Comments Annual Physical Exam Encounter Details Date Type Department Care Team (Late st Contact Info) Description 01/10/2023 8:30 AM CDT Office Visit [facility] [address] [place] [address] Nissa Morton NP [address] [place] [address] Encounter for annual physical exam (Primary Dx); Mixed anxiety and depressive disorder; Nephrolithiasis; Screening for lipid disorders; Screening for human immunodeficiency virus without presence of risk factors; Encounter for HCV screening test for low risk patient; Screening PSA (prostate specific antigen); Screening for diabetes mellitus; BMI 35.0-35.9,adult Social History Tobacco Use Types Packs/Day Years [...] on file Sexual Orientation Not on file documented as of this encounter Last Filed Vital Signs Vital Sign Reading [...] Mass Index 35.33 01/10/2023 8:32 AM CDT documented in this encounter Patient Instructions * Patient Instructions* Nissa Morton NP - 01/10/2023 8:30 AM CDT Avi Uribe, It was a pleasure to see you today for your Health Services visit. We checked fasting labs today-results should be available within 1-2 business days. Refills sent to [facility] for sertraline and HCTZ. For weight loss-recommend 60 min moderate physical activity daily. I also Health Coaching with one of our RN certified health and wellness coaches. This is a free service for [facility] employees. Please call our electrician front to [phone]. If you reconsider, recommended vaccines: shingles, flu, tetanus booster, covid booster coming out this fall. * Attachments The following attachments cannot be sent through Care Everywhere. * Well Visit: 50 to 65 Year Men (Comoran) * Anxiety: Paying Attention to How You're Doing: Video ([place]an) * Exercise: General Info (Comoran) * Kidney Stone Prevention Diet: General Info ([place]oran) documented in this encounter Progress Notes * Nissa Morton, ARNULFO - 01/10/2023 8:30 AM CDT Subjective: Vic Anthony is a 52 y.o. male last seen by me 07/2020 here for annual exam. No international travel planned. 2020-lithotripsy and stent-mult stones. Has been on HCTZ 50 mg once daily since then. No recent symptoms. 2021-screening colonoscopy-had it done in [place]. Had a few polyps. Repeat due in 5 yrs. Still on sertraline 75 mg once daily-doing well on it. Chief Complaint: Chief Complaint Patient presents with Annual Physical Exam History Reviewed: The following portions of the patient's chart were reviewed in this encounter and updated as appropriate: Tobacco Allergies Meds Problems Med Hx Surg Hx Fam Hx Soc Hx HPI Review of Systems Constitutional: Negative. HENT: Negative. Eyes: Negative. Respiratory: Negative. Cardiovascular: Negative. Gastrointestinal: Negative. Musculoskeletal: Negative. Skin: Negative. Neurological: Negative. Endo: Negative. Psychiatric/Behavioral: Positive for dysphoric mood. The patient is nervous/anxious. Well-controlled w/ sertraline All other systems reviewed and are negative. Allergy/Immuno: Allergic/immunologic negative. Hematologic: negative Genitourinary: Negative for decreased urine volume, difficulty urinating, penile discharge, dysuria, enuresis, flank pain, frequency, hematuria, nocturia, penile pain, penile swelling, scrotal swelling, testicular pain and urgency. Visit Vitals BP 112/70 (BP Location: Right arm, Patient Position: Sitting, BP Cuff Size: Large adult) Pulse 72 Temp 97 ??F (Tympanic) Resp 12 Ht 5' 11 Wt 253 lb 4.8 oz SpO2 98% BMI 35.33 kg/m?? Smoking Status Never BSA 2.4 m?? Objective: Physical Exam Vitals reviewed. Constitutional: General: He is not in acute distress. Appearance: He is well-developed and well-groomed. He is not ill-appearing, toxic-appearing or diaphoretic. HENT: Head: Normocephalic and atraumatic. Right Ear: Hearing, tympanic membrane, ear canal and external ear normal. Left Ear: Hearing, tympanic membrane, ear canal and external ear normal. Nose: Nose normal. Mouth/Throat: Lips: [place]. No lesions. Mouth: Mucous membranes are moist. Pharynx: Oropharynx is clear. Eyes: General: No scleral icterus. Extraocular Movements: Extraocular movements intact. Conjunctiva/sclera: Conjunctivae normal. Pupils: Pupils are equal, round, and reactive to light. Cardiovascular: Rate and Rhythm: Normal rate and regular rhythm. Chest Wall: PMI is not displaced. Heart sounds: Normal heart sounds, S1 normal and S2 normal. No murmur heard. No friction rub. No gallop. No S3 or S4 sounds. Pulmonary: Effort: Pulmonary effort is normal. Breath sounds: Normal breath sounds. Abdominal: General: There is no distension. Palpations: Abdomen is soft. There is no mass. Tenderness: There is no abdominal tenderness. There is no right CVA tenderness, left CVA tenderness, guarding or rebound. Hernia: No hernia is present. Genitourinary: Comments: Asymptomatic-deferred Musculoskeletal: General: No swelling, tenderness, deformity or signs of injury. Normal range of motion. Cervical back: Neck supple. No rigidity. Right lower leg: No edema. Left lower leg: No edema. Lymphadenopathy: Cervical: No cervical adenopathy. Skin: General: Skin is warm and dry. Capillary Refill: Capillary refill takes less than 2 seconds. Neurological: General: No focal deficit present. Mental Status: He is alert and oriented to person, place, and time. Psychiatric: Attention and Perception: Attention normal. Mood and Affect: Mood normal. Speech: Speech normal. Behavior: Behavior normal. Thought Content: Thought content normal. Cognition and Memory: Cognition normal. Judgment: Judgment normal. Assessment/Plan: Diagnoses and all orders for this visit: Encounter for annual physical exam Mixed anxiety and depressive disorder Comments: well-controlled on sertraline 75 mg once daily. Refills sent to [facility]. Advised to schedule PE w/ fasting labs. Orders: - Vitamin D 25-Hydroxy Total (78755) - Vitamin B12 Cyanocobalamin (88825) - CBC Complete Blood Count with Differential and Platelet (90232) - Comprehensive metabolic panel (74173) - sertraline (ZOLOFT) 50 MG tablet; Take 1.5 tablets (75 mg total) by mouth 1 (one) time each day. TAKE ONE AND ONE-HALF TABLETS ONE TIME EACH DAY Nephrolithiasis Comments: refill hctz. Sx quiet the past yr. Has strainer at home if needed. Orders: - hydroCHLOROthiazide (HYDRODIURIL) 50 MG tablet; Take 1 tablet (50 mg total) by mouth 1 (one) timeeach day. Screening for lipid disorders - Lipid panel (10120) Screening for human immunodeficiency virus without presence of risk factors - HIV 1/2 Antigen and Antibodies, 4th Generation, with Reflexes (95648) Encounter for HCV screening test for low risk patient - Hepatitis panel, general - [facility] (88172,[id number],73313) Screening PSA (prostate specific antigen) - PSA Prostate Specific Antigen Total (68438) Screening for diabetes mellitus - Hgb A1C Hemoglobin Glycosylated (53107) BMI 35.0-35.9,adult Comments: 60 min mod physical activity daily, recommend Health Coaching/condition mgmt Repeat colonoscopy 2026 Declines Td, flu, shingles today. Refills sent. Nissa Morton NP documented in this encounter Plan of Treatment Not on file documented as of this encounter Procedures Procedure Name Priority Date/Time Associated Diagnosis Comments HEPATITIS PANEL, GENERAL - Post-A-Vox Routine 01/10/2023 8:43 AM CDT Encounter for HCV screening test for low risk patient CBC WITH DIFFERENTIAL/PLATELE T Routine 01/10/2023 8:43 AM CDT Mixed anxiety and depressive disorder VITAMIN D 25 HYDROXY TOTAL Routine 01/10/2023 8:43 AM CDT Mixed anxiety and depressive disorder HIV 1/2 AG AND ABS, FOURTH GENERATION W/REFLEXES Routine 01/10/2023 8:43 AM CDT Screening for human immunodeficiency virus without presence of risk factors PSA Routine 01/10/2023 8:43 AM CDT Screening PSA (prostate specific antigen) HEMOGLOBIN A1C Routine 01/10/2023 8:43 AM CDT Screening for diabetes mellitus VITAMIN B12 Routine 01/10/2023 8:43 AM CDT Mixed anxiety and depressive disorder LIPID PANEL Routine 01/10/2023 8:43 AM CDT Screening for lipid disorders COMPREHENSIVE METABOLIC PANEL Routine 01/10/2023 8:43 AM CDT Mixed anxiety and depressive disorder documented in this encounter Results * (ABNORMAL) Comprehensive metabolic panel (51542) (01/10/2023 8:43 AM CDT) Pathologist [facility] Glucose 86 65 - 99 mg/dL [facility] Comment: ? Fasting reference interval BUN 18 7 - 25 mg/dL [facility] Creatinine 0.85 0.70 - 1.30 mg/dL [facility] eGFR 105 > OR = 60 mL/min/1. 73m2 [facility] BUN/Creatinine Ratio SEE NOTE: (calc) [facility] Comment: ?? Not Reported: BUN and Creatinine are within ?? reference range. ? Sodium 140 135 - 146 mmol/L [facility] Potassium 3.9 3.5 - 5.3 mmol/L [facility] Chloride 100 98 - 110 mmol/L [facility] CO2 33(H) 20 - 32 mmol/L [facility] Calcium 10.2 8.6 - 10.3 mg/dL [facility] Total Protein 6.7 6.1 - 8.1 g/dL [facility] Albumin 4.4 3.6 - 5.1 g/dL [facility] Globulin, Total 2.3 1.9 - 3.7 g/dL (calc) [facility] A/G Ratio 1.9 1.0 - 2.5 (calc) [facility] Total Bilirubin 0.6 0.2 - 1.2 mg/dL [facility] Alkaline Phosphatase 74 35 - 144 U/L [facility] AST 16 10 - 35 U/L [facility] ALT (SGPT) 16 9 - 46 U/L [facility] Blood (Blood, Venous) 01/10/2023 8:43 AM CDT 01/11/2023 5:37 AM CDT Nissa [facility] CAD ADMINISTRATOR LAB BLOOD ORDERABLES [facility] [address] [place] [address] * CBC Complete Blood Count with Differential and Platelet (14099) (01/10/2023 8:43 AM CDT) Auto WBC 6.3 3.8 - 10.8 Thousand/u L [facility] RBC 4.77 4.20 - 5.80 Million/uL [facility] Hemoglobin 14.9 13.2 - 17.1 g/dL [facility] Hematocrit 44.1 38.5 - 50.0 % [facility] MCV 92.5 80.0 - 100.0 fL [facility] MCH 31.2 27.0 - 33.0 pg [facility] MCHC 33.8 32.0 - 36.0 g/dL [facility] RDW 12.4 11.0 - 15.0 % [facility] Platelets 258 140 - 400 Thousand/u L [facility] MPV 9.2 7.5 - 12.5 fL [facility] Neutrophils Absolute 4,026 1,500 - 7,800 cells/uL [facility] Lymphocytes Absolute 1,676 850 - 3,900 cells/uL [facility] Monocytes Absolute 422 200 - 950 cells/uL [facility] Eosinophils Absolute 139 15 - 500 cells/uL [facility] Basophils Absolute 38 0 - 200 cells/uL [facility] Neutrophils Relative 63.9 % [facility] Lymphocytes Relative 26.6 % [facility] Monocytes Relative 6.7 % [facility] Eosinophils Relative 2.2 % [facility] Basophils Relative 0.6 % [facility] Blood (Blood, Venous) 01/10/2023 8:43 AM CDT 01/11/2023 5:37 AM CDT Nissa [facility] CAD ADMINISTRATOR LAB BLOOD ORDERABLES [facility] [address] [place] [address] * Hepatitis panel, general - [facility] (42330,76387,39977,16199,83612) (01/10/2023 8:43 AM CDT) Hepatitis A Antibody, Total NON-REACTI VE NON-REACT TARAN [facility] Comment: For additional information, please refer to http://Allylix/faq/DQM193 (This link is being provided for informational/ educational purposes only.) HEPATITIS B SURFACE ANTIBODY QL NON-REACTI VE NON-REACT TARAN [facility] HEPATITIS B SURFACE ANTIGEN NON-REACTI VE NON-REACT TARAN [facility] Comment: For additional information, please refer to http://Allylix/faq/IMD833 (This link is being provided for informational/ educational purposes only.) Hepatitis B Core Ab Total NON-REACTI VE NON-REACT TARAN [facility] Comment: For additional information, please refer to http://Allylix/faq/EVO324 (This link is being provided for informational/ educational purposes only.) HEPATITIS C ANTIBODY NON-REACTI VE NON-REACT TARAN [facility] Comment: HCV antibody was non-reactive. There is no laboratory evidence of HCV infection. In most cases, no further action is required. However, if recent HCV exposure is suspected, a test for HCV RNA (test code 17998) is suggested. For additional information please refer to http://Allylix/faq/XVC82y2 (This link is being provided for informational/ educational purposes only.) Blood (Blood, Venous) 01/10/2023 8:43 AM CDT 01/11/2023 5:37 AM CDT [facility] LAB BLOOD ORDERABLES Performing Organization Address [facility]/ZIP Co de Phone Number [facility] [address] [place] [address] * Hgb A1C Hemoglobin Glycosylated (47628) (01/10/2023 8:43 AM CDT) Hemoglobin A1C 5.0 <5.7 % of total Hgb [facility] Comment: For the purpose of screening for the presence of diabetes: <5.7% ? Consistent with the absence of diabetes 5.7-6.4% ?Consistent with increased risk for diabetes ?(prediabetes) > or =6.5% ??Consistent with diabetes This assay result is consistent with a decreased risk of diabetes. Currently, no consensus exists regarding use of hemoglobin A1c for diagnosis of diabetes in children. According to [place] Diabetes Association (ADA) guidelines, hemoglobin A1c <7.0% represents optimal control in non- diabetic patients. Different metrics may apply to specific patient populations. Standards of Medical Care in Diabetes(ADA). Blood (Blood, Venous) 01/10/2023 8:43 AM CDT 01/11/2023 5:37 AM CDT [facility] LAB BLOOD ORDERABLES Performing Organization Address [facility]/ZIP Co de Phone Number [facility] [address] [place] [address] * HIV 1/2 Antigen and Antibodies, 4th Generation, with Reflexes (50913) (01/10/2023 8:43 AM CDT) HIV Combo AB/AG NON-REACT TARAN NON-REACT TARAN [facility] Comment: HIV-1 antigen and HIV-1/HIV-2 antibodies were not detected. There is no laboratory evidence of HIV infection. PLEASE NOTE: This information has been disclosed to you from records whose confidentiality may be protected by state law. ??If your state requires such protection, then the state law prohibits you from making any further disclosure of the information without the specific written consent of the person to whom it pertains, or as otherwise permitted by law. A general authorization for the release of medical or other information is NOT sufficient for this purpose. ?? For additional information please refer to http://education.Winster/faq/QGL287 (This link is being provided for informational/ educational purposes only.) The performance of this assay has not been clinically validated in patients less than 2 years old. Blood (Blood, Venous) 01/10/2023 8:43 AM CDT 01/11/2023 5:37 AM CDT [facility] LAB BLOOD ORDERABLES Performing Organization Address [facility] de Phone Number [facility] [address] [place] [address] * PSA Prostate Specific Antigen Total (06629) (01/10/2023 8:43 AM CDT) PSA 0.49 < OR = 4.00 ng/mL [facility] Comment: The total PSA value from this assay system is standardized against the WHO standard. The test result will be approximately 20% lower when compared to the equimolar-standardized total PSA (Yeny Triston). Comparison of serial PSA results should be interpreted with this fact in mind. This test was performed using the Siemens chemiluminescent method. Values obtained from different assay methods cannot be used interchangeably. PSA levels, regardless of value, should not be interpreted as absolute evidence of the presence or absence of disease. Blood (Blood, Venous) 01/10/2023 8:43 AM CDT 01/11/2023 5:37 AM CDT [facility] LAB BLOOD ORDERABLES Performing Organization Address [facility] Co de Phone Number [facility] [address] [place] [address] * Vitamin B12 Cyanocobalamin (40816) (01/10/2023 8:43 AM CDT) Pathologist [facility] Vitamin B-12 265 200 - 1,100 pg/mL [facility] Comment: Please Note: Although the reference range for vitamin B12 is 200-1100 pg/mL, it has been reported that between 5 and 10% of patients with values between 200 and 400 pg/mL may experience neuropsychiatric and hematologic abnormalities due to occult B12 deficiency; less than 1% of patients with values above 400 pg/mL will have symptoms. Blood (Blood, Venous) 01/10/2023 8:43 AM CDT 01/11/2023 5:37 AM CDT Nissa Morton CAD ADMINISTRATOR LAB BLOOD ORDERABLES Performing Organization Address City/State/[facility] Co de Phone Number [facility] [address] [place] [address] * Vitamin D 25-Hydroxy Total (88191) (01/10/2023 8:43 AM CDT) [facility] Vit D, 25-Hydroxy 61 30 - 100 ng/mL [facility] Ari[facility] Comment: Vitamin D Status ? 25-OH Vitamin D: Deficiency: ?<20 ng/mL Insufficiency: ? 20 - 29 ng/mL Optimal: ? > or = 30 ng/mL For 25-OH Vitamin D testing on patients on D2-supplementation and patients for whom quantitation of D2 and D3 fractions is required, the [facility]() 25-OH VIT D, (D2,D3), LC/MS/MS is recommended: order code 84226 (patients >2yrs). See Note 1 Note 1 For additional information, please refer to http://education.Carbon Objects/faq/UST221 (This link is being provided for informational/ educational purposes only.) Blood (Blood, Venous) 01/10/2023 8:43 AM CDT 01/11/2023 5:37 AM CDT Nissa Morton NP LAB BLOOD ORDERABLES ISAI Arias [address] [place] [address] * (ABNORMAL) Lipid panel (39126) (01/10/2023 8:43 AM CDT) Cholesterol 222(H) <200 mg/dL [facility] Total HDL-C Direct 45 > OR = 40 mg/dL [facility] Triglycerides 209(H) <150 mg/dL [facility] Comment: If a non-fasting specimen was collected, consider repeat triglyceride testing on a fasting specimen if clinically indicated. [place] et al. J. of Clin. Lipidol. 2015;9:129-169. LDL Calculated 142(H) mg/dL (calc) [facility] Arias Comment: Reference range: <100 Desirable range <100 mg/dL for primary prevention; ?? <70 mg/dL for patients with CHD or diabetic patients with > or = 2 CHD risk factors. LDL-C is now calculated using the Mik-Peter calculation, which is a validated novel method providing better accuracy than the Friedewald equation in the estimation of LDL-C. Mik SS et al. SITA. 2013;310(19): 2684-8221 (http://education.[place] [employer] [place]/faq/SDW638) Chol/HDL Ratio 4.9 <5.0 (calc) [facility] Non HDL Chol. (LDL+VLDL) 177(H) <130 mg/dL (calc) [facility] Comment: For patients with diabetes plus 1 major ASCVD risk factor, treating to a non-HDL-C goal of <100 mg/dL (LDL-C of <70 mg/dL) is considered a therapeutic option. Blood (Blood, Venous) 01/10/2023 8:43 AM CDT 01/11/2023 5:37 AM CDT Nissa Morton CAD ADMINISTRATOR LAB BLOOD ORDERABLES [facility] [address] [place] [address] documented in this encounter Visit Diagnoses Diagnosis Encounter for annual physical exam- Primary Mixed anxiety and depressive disorder Dysthymic disorder Nephrolithiasis Calculus of kidney Screening for lipid disorders Screening for human immunodeficiency virus without presence of risk factors Encounter for HCV screening test for low risk patient Screening PSA (prostate specific antigen) Special screening for malignant neoplasm of prostate Screening for diabetes mellitus BMI 35.0-35.9,adult documented in this encounter Care Teams Relay Tester Relationship Specialty Start Date End Date Pcp, [place] [address] PCP - General Family Medicine 06/16/19 documented as of this encounter
--- NOTE | 2023-06-04 10:00 | CRLHL7_ITS ---
For Patients: As a result of the Century Cures Act, medical imaging exams and procedure reports are released immediately into your electronic medical record. You may view this report before your referring provider. If you have questions, please contact your health care provider. INDICATION: Left renal enoch, history of kidney stones TECHNIQUE: CT abdomen and pelvis without contrast, stone protocol. COMPARISON: 12/10/[address] FINDINGS: Kidney/ureters: 9 mm stone in the left renal pelvis, smaller than on the previous study where it measured 13 mm. Fat stranding in the renal hilum around the renal pelvis. Minimal pyelocaliectasis, less than on prior study. Additional tiny nonobstructing stones in both kidneys, decreased in number and size. Liver/gallbladder/bile ducts: A couple of tiny low-density liver lesions are unchanged and should be benign. Gallbladder is normal without visualized stones or inflammation. No biliary dilatation. Spleen/pancreas/adrenal glands: The spleen, adrenal glands and pancreas are within normal limits. GI tract: The bowel is unremarkable. Normal appendix. Abdominal wall/omentum/peritoneum: No free air or significant free fluid. No mass or inflammation. Lymph nodes: No lymphadenopathy. Pelvis: Unremarkable pelvis. Lower chest: Unremarkable. Bones: Chronic bilateral L5 pars defects and grade 1 anterolisthesis. IMPRESSION: 1. Overall decrease in size and number of bilateral renal stones. 2. Dominant 9 mm left renal pelvis stone is smaller than on previous study. Persistent fat stranding around the renal pelvis likely due to inflammation. Please note that all CT scans at this facility use dose modulation, iterative reconstruction, and/or weight-based dosing when appropriate to reduce radiation dose to as low as reasonably achievable. Dictated by Sidney Paul MD @ 06/04/2023 12:12:33 PM (Electronically Signed)
== END 2023-06-04 09:12 | disposition home or self-care (01) ==
PROVIDERS: PCP Family Medicine; Visit Provider Family Medicine
DX: N23 Unspecified renal colic (principal); N20.0 Calculus of kidney; R31.9 Hematuria, unspecified
CPT/HCPCS: 74176

== ENCOUNTER 2023-08-18 11:54 | Outpatient (CLI) | payer OTHER, SELFPAY ==
--- OUTSIDE RECORDS SUMMARY | 2023-08-22 09:26 | XMS_ITS | Encounter Summary ---
Author Name Unknown Organization [facility] Address [address] [place] [address] Phone [email or web address] Care Team Providers Care Relocation Associate Name Role Phone Pcp, No Primary Care Provider Unavailabl e Reason for Visit * Reason Comments Med Refill Encounter Details Date Type Department Care Team (Late st Contact Info) Description 06/22/2023 Refill [facility] [address] [place] [address] Nissa Morton NP [address] [place] [address] Nephrolithiasis Social History Tobacco Use Types Packs/Day [...] kidney documented in this encounter Care Teams Relocation Associate Relationship Specialty Start Date End Date Pcp, [place] [address] PCP - General Family Medicine 06/16/19 documented as of this encounter
--- OUTSIDE RECORDS SUMMARY | 2023-08-22 09:26 | XMS_ITS | Clinical Summary ---
Author Name Unknown Organization [facility] Address [address] [place] [address] Phone [email or web address] Care Team Providers Care Patient Ambassador Name Role Phone Pcp, No Primary Care [...] Department Care Team Description [facility] [address] [place] [address] Nissa Morton NP Nephrolithiasis from Last 3 [...] age to complete this topic Care Teams Patient Ambassador Relationship Specialty Start Date End Date Pcp, [place] [address] PCP - General Family Medicine 06/16/19
--- OUTSIDE RECORDS SUMMARY | 2023-08-22 09:26 | XMS_ITS | Referral Summary ---
Author Name Unknown Organization [facility] Address [address] [facility] [place] [address] Care Team Providers Care Thermodynamics Professor Name Role Phone Karl Barros Unavailable [phone] Oliva Cantrell PA-C Unavailable [phone] Karl Barros Primary Care Provider [phone] Allergies No known active allergies Medications Medication [...] on file Medical Devices Implanted Type Area Professor Of Surgery Device Identifier Shelf Expiration Date Model / Serial / Lot Stent Ureteral Contour Soft Percuflex [id number] Implanted:Qty: 1 on 01/11/2020 by Yogesh Anderson MD at [facility] Stent Left: Urethra [employer] 10/04/2022 [id number] / / [id number] Procedures Procedure Name Priority Date/Time Associated Diagnosis Comments COMPREHENSIVE METABOLIC PANEL Routine 08/24/2011 12:25 PM CDT Vertigo from Last 3 Months or Most Recently Relevant to Health Maintenance Results * (ABNORMAL) Comprehensive metabolic panel (08/24/2011 12:25 PM CDT) Sodium 141 133 - 144 mmol/L [facility] Potassium 4.1 3.4 - 5.3 mmol/L [facility] Chloride 103 94 - 109 mmol/L [facility] Carbon Dioxide 29 20 - 32 mmol/L [facility] Anion Gap 9 6 - 17 mmol/L [facility] Glucose 126(H) 60 - 99 mg/dL [facility] Urea Nitrogen 14 5 - 24 mg/dL [facility] Creatinine 0.81 0.66 - 1.25 mg/dL [facility] GFR Estimate >90 >60 mL/min/1.7 m2 [facility] GFR Estimate If Black >90 >60 mL/min/1.7 m2 [facility] Calcium 9.3 8.5 - 10.4 mg/dL [facility] Bilirubin Total 0.6 0.2 - 1.3 mg/dL [facility] Albumin 4.5 3.9 - 5.1 g/dL [facility] Protein Total 7.3 6.8 - 8.8 g/dL [facility] Alkaline Phosphatase 76 40 - 150 U/L [facility] ALT 27 0 - 70 U/L [facility] AST 21 0 - 45 U/L [facility] Blood specimen (specimen) 08/24/2011 12:25 PM CDT 08/24/2011 12:30 PM CDT Mac Pedro PA-C LAB - BLOOD ORDER [facility] [place] [place] [address] from Last 3 Months or Most Recently Relevant to Health Maintenance Care Teams Thermodynamics Professor Relationship Specialty Start Date End Date Karl Barros [place] [address] [place] [address] PCP - General Family Practice 12/29/19 Karl Barros [address] [address] Referring Physician Family Practice 12/29/19 Oliva Cantrell PA-C [address] [address] Physician Tinsel Machine Operator Physician Tinsel Machine Operator - Medical 12/29/19
--- OUTSIDE RECORDS SUMMARY | 2023-08-22 09:26 | XMS_ITS | Clinical Summary ---
Author Name Unknown Organization [facility] Address [address] [facility] [place] [address] Care Team Providers Care Desizing Machine Back Tender Name Role Phone Karl Barros Unavailable [phone] Oliva Cantrell PA-C Unavailable [phone] Karl Barros Primary Care Provider [phone] Allergies No known active allergies Medications Medication [...] on file Medical Devices Implanted Type Area Bushing And Broach Operator Device Identifier Shelf Expiration Date Model / Serial / Lot Stent Ureteral Contour Soft Percuflex [id number] Implanted:Qty: 1 on 01/11/2020 by Yogesh Anderson MD at [facility] Stent Left: Urethra [employer] 10/04/2022 [id number] / / [id number] Procedures Procedure Name Priority Date/Time Associated Diagnosis Comments COMPREHENSIVE METABOLIC PANEL Routine 08/24/2011 12:25 PM CDT Vertigo from Last 3 Months or Most Recently Relevant to Health Maintenance Results * (ABNORMAL) Comprehensive metabolic panel (08/24/2011 12:25 PM CDT) Sodium 141 133 - 144 mmol/L [facility] Potassium 4.1 3.4 - 5.3 mmol/L [facility] Chloride 103 94 - 109 mmol/L [facility] Carbon Dioxide 29 20 - 32 mmol/L [facility] Anion Gap 9 6 - 17 mmol/L [facility] Glucose 126(H) 60 - 99 mg/dL [facility] Urea Nitrogen 14 5 - 24 mg/dL [facility] Creatinine 0.81 0.66 - 1.25 mg/dL [facility] GFR Estimate >90 >60 mL/min/1.7 m2 [facility] GFR Estimate If Black >90 >60 mL/min/1.7 m2 [facility] Calcium 9.3 8.5 - 10.4 mg/dL [facility] Bilirubin Total 0.6 0.2 - 1.3 mg/dL [facility] Albumin 4.5 3.9 - 5.1 g/dL [facility] Protein Total 7.3 6.8 - 8.8 g/dL [facility] Alkaline Phosphatase 76 40 - 150 U/L [facility] ALT 27 0 - 70 U/L [facility] AST 21 0 - 45 U/L [facility] Blood specimen (specimen) 08/24/2011 12:25 PM CDT 08/24/2011 12:30 PM CDT Mac Pedro PA-C LAB - BLOOD ORDER [facility] [place] [address] from Last 3 Months or Most Recently Relevant to Health Maintenance Care Teams Desizing Machine Back Tender Relationship Specialty Start Date End Date Karl Barros [place] [address] [address] [employer] [place] [address] PCP - General Family Practice 12/29/19 Karl Barros [address] [address] Referring Physician Family Practice 12/29/19 Oliva Cantrell PA-C [address] [address] Physician Plater Supervisor Physician Plater Supervisor - Medical 12/29/19
== END 2023-08-18 11:55 | disposition home or self-care (01) ==
LOC: NFLDREF 08-22 09:23
PROVIDERS: PCP Family Medicine; Referring Provider Family Medicine; Visit Provider Family Medicine
DX: N20.0 Calculus of kidney (principal); R31.0 Gross hematuria
CPT/HCPCS: 87086

== ENCOUNTER 2023-08-21 14:53 | Outpatient (CLI) | payer OTHER, SELFPAY ==
--- OUTSIDE RECORDS SUMMARY | 2023-08-21 14:57 | XMS_ITS | Referral Summary ---
Author Name Unknown Organization [facility] Address [address] [facility] [place] [address] Care Team Providers Care Grade Recorder Name Role Phone Karl Barros Unavailable [phone] Oliva Cantrell PA-C Unavailable [phone] Karl Barros Primary Care Provider [phone] Allergies No known active allergies Medications Medication Sig Dispensed Refills Start Date End Date Status ondansetron (ZOFRAN) 4 MG tablet Take 4 mg by mouth every 6 hours as needed for nausea Active oxyCODONE-acetaminop hen (PERCOCET) 5-325 MG tablet Take 1-2 tablets by mouth every 6 hours as needed for severe pain Active sildenafil (REVATIO) 20 MG tablet Take 20 mg by mouth daily Active tamsulosin (FLOMAX) 0.4 MG capsule Take 0.4 mg by mouth daily Active sertraline (ZOLOFT) 50 MG tablet Take 50 mg by mouth daily Active HYDROcodone-acetamin ophen (NORCO) 5-325 MG tabletIndications:Ki dney stone Take 1-2 tablets by mouth every 4 hours as needed for moderate to severe pain 15 tablet 01/11/2020 Active Social History Tobacco Use Types [...] on file Medical Devices Implanted Type Area Dean Of Men Device Identifier Shelf Expiration Date Model / Serial / Lot Stent Ureteral Contour Soft Percuflex [id number] Implanted:Qty: 1 on 01/11/2020 by Yogesh Anderson MD at [facility] Stent Left: Urethra [employer] 10/04/2022 [id number] / / [id number] Procedures Procedure Name Priority Date/Time Associated Diagnosis Comments COMPREHENSIVE METABOLIC PANEL Routine 08/24/2011 12:25 PM CDT Vertigo from Last 3 Months or Most Recently Relevant to Health Maintenance Results * (ABNORMAL) Comprehensive metabolic panel (08/24/2011 12:25 PM CDT) Sodium 141 133 - 144 mmol/L [facility] Potassium 4.1 3.4 - 5.3 mmol/L [facility] Chloride 103 94 - 109 mmol/L [facility] Carbon Dioxide 29 20 - 32 mmol/L [facility] Anion Gap 9 6 - 17 mmol/L [facility] Glucose 126(H) 60 - 99 mg/dL [facility] Urea Nitrogen 14 5 - 24 mg/dL [facility] Creatinine 0.81 0.66 - 1.25 mg/dL [facility] GFR Estimate >90 >60 mL/min/1.7 m2 [facility] GFR Estimate If Black >90 >60 mL/min/1.7 m2 [facility] Calcium 9.3 8.5 - 10.4 mg/dL [facility] Bilirubin Total 0.6 0.2 - 1.3 mg/dL [facility] Albumin 4.5 3.9 - 5.1 g/dL [facility] Protein Total 7.3 6.8 - 8.8 g/dL [facility] Alkaline Phosphatase 76 40 - 150 U/L [facility] ALT 27 0 - 70 U/L [facility] AST 21 0 - 45 U/L [facility] Blood specimen (specimen) 08/24/2011 12:25 PM CDT 08/24/2011 12:30 PM CDT Mac Pedro PA-C LAB - BLOOD ORDER [facility] [place] [address] from Last 3 Months or Most Recently Relevant to Health Maintenance Care Teams Grade Recorder Relationship Specialty Start Date End Date Karl Barros [place] [address] [employer] [place] [address] PCP - General Family Practice 12/29/19 Karl Barros [address] [address] Referring Physician Family Practice 12/29/19 Oliva Cantrell PA-C [address] [address] Physician Home School Coordinator Physician Home School Coordinator - Medical 12/29/19
--- OUTSIDE RECORDS SUMMARY | 2023-08-21 14:57 | XMS_ITS | Data Portability ---
Author Name Unknown Address [address] [place] [address] Phone [phone] Organization [facility], [facility] Address [address] [place] [address] Care Team Providers Care Support Services Rep Name Role Phone ELVIN DOBBINS Primary Care [...] 020 [facility], [address], [place], [address], 0 13:03:43 Referral None recorded. Procedures None recorded. Surgeries None recorded. Imaging US, renal 2019 020 [email or web address] [facility], [address], [address], [place], [address], 0 13:04:49 Medication Orders hydrochlor othiazide 50 mg tablet 2019 020 INTERFACE [id number], [address], [place], [address], 0 10:52:03 Patient TargetsNo targets recorded. Patient Instructions Encounter Date Encounter Id Patient Instructions Last Modified By Organization Details Last Modified Time 01/28/2020 [id number] STONE PREVENTION. [email or web address] Not availab le 01/28/2020 10:23:23 12/16/2019 [id number] Ureteroscopy wit h Stone Manipulation - PATIENT [...] observ ation record ed. EVAN [facility] [address] [facility] [address], [place], [address], 06/27/2020 14:41:16 Result Notes None recorded. Problems Name Status Onset Date Resolution Date Notes Provider Name and Address Organization Details Recorded Time Kidney stone Active 0 Yogesh Alford MD [address] [place] [address],[address], [place], [address], [facility] 02/16/2020 09:13:01 Problem Notes None recorded. Procedures Surgical History Date Name Laterality Status Provider Name and Address Organization Details Recorded Time 01/28/20 20 Cystoscopy with foreign body/stent removal completed Dylon Luu MD [address] [place] [address],[address], [place], [address], [facility] 01/28/2020 10:22:20 extracorporeal shockwave lithotripsy completed Dylon Luu MD [address] [place] [address],[address], [place], [address], [facility] 01/28/2020 09:39:39 Imaging Results Imaging Date Name Status LastModified by Organiz ation Details LastModified Time 06/26/2020 US, retroperitone um, complete completed EVAN [facility] [address] [facility] [address], [place], [address], 06/27/2020 14:41:16 Procedure Notes None recorded. Medical [...] Updated DateTime 01/28/2020 180.34 cm 32.5 kg/m2 793328.02 g Dylon Luu MD [address] [facility],[address], [place], [address], [facility] 01/28/2020 09:38:17 Date Recorded Body height Body mass index (BMI) Body weight Provider Name and Address Organization Details Last Updated DateTime 03/27/2020 180.34 cm 32.8 kg/m2 880841.21 g Deangelo dunn [facility] 03/27/2020 10:24:58 Date Recorded Body height Body mass index (BMI) Body weight Provider Name and Address Organization Details Last Updated DateTime 12/16/2019 180.34 cm 32.5 kg/m2 512508.02 g Deangelo dunn [facility] 12/16/2019 16:11:07 Social History Question Answer Notes LastModified by Organizat ion Details LastModified Time Tobacco Smoking Status Never Smoker Deangelo dunn [facility] 12/16/2019 16:14:01 What Is Your Level Of [...] Response Diabetes N Sexually Transmitted Infection N Other N Bleeding Disorder N High Blood Pressure N Kidney Stones Y High Cholesterol N GERD/Acid Reflux N Heart Disease N Cancer N Lung Disease N Depression Y Past Encounters Encounter ID Performer Location Encounter Start Date Encounter Closed Date Diagnosis/Indication Diagnosis SNOMED-CT Code [id number] MD M[facility] [address] [place] [address] 12/16/2019 16:09:12 12/17/2019 08:44:55 Kidney stone [id number] MD [facility] [address] [place] [address] 01/28/2020 09:34:55 01/28/2020 11:44:45 Ureteric stone [id number] Yogesh Alford MD [facility] [address] [facility] [place] [address] 03/27/2020 10:24:03 03/27/2020 13:16:49 Kidney stone [id number] Health Concerns Section Related Observation LastModified by Organization Detai ls LastModified Time None Recorded Concern Status LastModified by Organization Details LastModified Time None Recorded Advance Directives Directive None Recorded Payers Encounter Date Sequence Insurance Name Policy Number Policy Leiva Covered Member ID Leiva Member ID Guarantor Name 03/27/2020 1 [facility] [id number] Vic Ruanovorson [id number] Vic Vann Raj 01/28/2020 1 [facility] [id number] Vic Williamson Raj [id number] Vic Vann Raj 12/16/2019 1 [facility] [id number] Vic Williamson Raj [id number] Vic Vann Raj Notes Date Note Type [...] alleviating factors. This visit was conducted using [employer] video conferencing technology due to the COVID-19 [...] and coordinate their care. Yogesh Alford MD [address] [place] [address],[address], [address], [facility] 12/16/2019 17:37:49 01/28/2020 text/html HPI Notes: Mr. [...] STENT REMOVAL..S/P URS,HLL, STENT-DR PRASHANTH Luu MD [address] [place] [address],[address], [place], [address], [facility] 01/28/2020 10:24:06 03/27/2020 text/html HPI Notes: [...] and coordinate their care. Yogesh Alford MD [address] [place] [address],[address], [address], [facility] 03/27/2020 10:53:13
--- OUTSIDE RECORDS SUMMARY | 2023-08-21 14:57 | XMS_ITS | Clinical Summary ---
Author Name Unknown Organization [facility] Address [address] [facility] [place] [address] Care Team Providers Care Exchange Consultant Name Role Phone Karl Barros Unavailable [phone] Oliva Cantrell PA-C Unavailable [phone] Karl Barros Primary Care Provider [phone] Allergies No known active allergies Medications Medication [...] on file Medical Devices Implanted Type Area Mastic Floor Layer Device Identifier Shelf Expiration Date Model / Serial / Lot Stent Ureteral Contour Soft Percuflex [id number] Implanted:Qty: 1 on 01/11/2020 by Yogesh Anderson MD at [facility] Stent Left: Urethra [employer] 10/04/2022 [id number] / / [id number] Procedures Procedure Name Priority Date/Time Associated Diagnosis Comments COMPREHENSIVE METABOLIC PANEL Routine 08/24/2011 12:25 PM CDT Vertigo from Last 3 Months or Most Recently Relevant to Health Maintenance Results * (ABNORMAL) Comprehensive metabolic panel (08/24/2011 12:25 PM CDT) Sodium 141 133 - 144 mmol/L [facility] Potassium 4.1 3.4 - 5.3 mmol/L [facility] Chloride 103 94 - 109 mmol/L [facility] Carbon Dioxide 29 20 - 32 mmol/L [facility] Anion Gap 9 6 - 17 mmol/L [facility] Glucose 126(H) 60 - 99 mg/dL [facility] Urea Nitrogen 14 5 - 24 mg/dL [facility] Creatinine 0.81 0.66 - 1.25 mg/dL [facility] GFR Estimate >90 >60 mL/min/1.7 m2 [facility] GFR Estimate If Black >90 >60 mL/min/1.7 m2 [facility] Calcium 9.3 8.5 - 10.4 mg/dL [facility] Bilirubin Total 0.6 0.2 - 1.3 mg/dL [facility] Albumin 4.5 3.9 - 5.1 g/dL [facility] Protein Total 7.3 6.8 - 8.8 g/dL [facility] Alkaline Phosphatase 76 40 - 150 U/L [facility] ALT 27 0 - 70 U/L [facility] AST 21 0 - 45 U/L [facility] Blood specimen (specimen) 08/24/2011 12:25 PM CDT 08/24/2011 12:30 PM CDT Mac Pedro PA-C LAB - BLOOD ORDER [facility] [place] [place] [address] from Last 3 Months or Most Recently Relevant to Health Maintenance Care Teams Exchange Consultant Relationship Specialty Start Date End Date Karl Barros [address] [address] [address] [place] [address] PCP - General Family Practice 12/29/19 Karl Barros [address] [address] Referring Physician Family Practice 12/29/19 Oliva Cantrell PA-C [address] [address] Physician Pluck Trimmer Physician Pluck Trimmer - Medical 12/29/19
--- OUTSIDE RECORDS SUMMARY | 2023-08-21 14:57 | XMS_ITS | Clinical Summary ---
Author Name Unknown Organization [facility] Address [address] [place] [address] Phone [email or web address] Care Team Providers Care Pipe Supervisor Name Role Phone Pcp, No Primary Care Provider Unavailabl e Allergies No known active allergies Medications Medication Sig Dispensed Refills Start Date End Date Status sertraline (ZOLOFT) 50 MG tabletIndications:Mi xed anxiety and depressive disorder Take 1.5 tablets (75 mg total) by mouth 1 (one) time each day. TAKE ONE AND ONE-HALF TABLETS ONE TIME EACH DAY 135 tablet 3 01/10/2023 Active hydroCHLOROthiazide 50 MG tabletIndications:Ne phrolithiasis TAKE 1 TABLET DAILY 90 tablet 1 06/23/2023 Active Active Problems Problem Noted Date Diagnosed Date Medication refill 06/16/2019 Anxiety and depression 07/21/2017 Overview: Encounters Date Type Department Care Team Description [facility] [address] [place] [address] Nissa Morton NP Nephrolithiasis from Last 3 Months Immunizations Name Administration Dates Next Due Influenza Tri (CVX - 141) 02/12/2012,,02/20/2010,02/22/ 009 Td (TdVax), adult, 2 Lf teta [...] Date Last Done Comments Dental Cleaning/Exam 1970 Annual Preventive Exam 01/11/2024 , 01/10/2023 Covid-19 Immunization (2022-24 season) 2024 Postponed from 01/10 (Member Refused) Hepatitis B Immunization (1 of 3 - 19+ 3-dose series) 01/11/2024 Postponed from 1989 (Member Refused) Influenza Immunization (Season Ended) 2024 Tetanus (Tdap or Td) Immunization 01/11/2024 09/28/2002 Postponed from 09/28 (Member Refused) Zoster Immunization (1 of 2) [...] 64 Yrs) Aged Out No longer eligible b ased on patient's age to complete this topic Polio Immunization Aged Out No longer eligible based on patient's age to complete this topic Care Teams Pipe Supervisor Relationship Specialty Start Date End Date Pcp, [place] [address] PCP - General Family Medicine 06/16/19
--- OUTSIDE RECORDS SUMMARY | 2023-08-21 14:57 | XMS_ITS | Encounter Summary ---
Author Name Unknown Organization [facility] Address [address] [place] [address] Phone [email or web address] Care Team Providers Care Director Strategy Name Role Phone Pcp, No Primary Care Provider Unavailabl e Reason for Visit * Reason Comments Med Refill Encounter Details Date Type Department Care Team (Late st Contact Info) Description 06/22/2023 Refill [facility] [address] [place] [address] Nissa Morton NP [address] [place] [address] Nephrolithiasis Social History Tobacco Use Types Packs/Day Years Used Date Smoking Tobacco: Never Smokeless Tobacco: Never Alcohol Use Standard Drinks/Week Comments Not Currently [...] on file documented as of this encounter Plan of Treatment Not on file documented as of this encounter Visit Diagnoses Diagnosis Nephrolithiasis Calculus of kidney documented in this encounter Care Teams Director Strategy Relationship Specialty Start Date End Date Pcp, [place] [address] PCP - General Family Medicine 06/16/19 documented as of this encounter
--- NOTE | 2023-08-21 15:00 | CT_ITS ---
Patient: GAGE STEVENSON Facility:?[facility] Patient ID:?[id number] Site Patient ID:?[id number]. Site :?1970 Study:?CT-Abdomen/Pelvis STONE STUDY-08/21/2023 3:24:27 PM Ordering Physician:CHRISS Final Report: INDICATION: Kidney stone follow-up.. TECHNIQUE: CT abdomen and pelvis without contrast. COMPARISON: Previous exam from 06/04/2023. FINDINGS: Limited exam due to lack of IV contrast. Heart is normal in size. No pericardial or pleural effusion. Visualized lungs are clear. Couple of too small to characterize but stable liver lesions statistically simple cysts. Noncontrast appearance of the spleen, gallbladder, pancreas, adrenals and right kidney within normal limits. Stable calcified 9 millimeter stone in left the renal pelvis with mild dilation of the renal calices. Stable thickening of the left renal pelvis wall may be secondary to chronic irritation. Additional couple of punctate stones in the left kidney. No free pelvic fluid or ascites. Prostate nonenlarged. Small bilateral fat containing inguinal hernia. Urinary bladder is within normal limits. No enlarged inguinal, pelvic or retroperitoneal lymph nodes. Stable haziness in the left abdominal mesentery with prominent but not pathologically enlarged lymph nodes. No abnormally dilated bowel loops to suggest bowel obstruction. Normal appendix. No pneumoperitoneum. No suspicious bony lesion. Impression: Limited exam due to lack of IV contrast. Stable left nephrolithiasis with dominant stone in the renal pelvis causing mild caliectasis or dilation of the renal calices. See above for details. Stable haziness in the left abdominal mesentery with prominent but nonenlarged mesenteric lymph nodes may be from mesenteric adenitis. Attention on follow-up imaging. Other findings as described above. Please note that all CT scans at this facility use dose modulation, iterative reconstruction, and/or weight-based dosing when appropriate to reduce radiation dose to as low as reasonably achievable. Dictated by Krishna Rothman MD @ 08/21/2023 10:29:12 PM Signed by:Cally Rothman MD @08/21/2023 10:29:12 PM (Electronic Signature)
== END 2023-08-21 14:54 | disposition home or self-care (01) ==
PROVIDERS: PCP Family Medicine; Visit Provider Family Medicine
DX: N20.0 Calculus of kidney (principal)
CPT/HCPCS: 74176